=== PATIENT | male | born 1960 | race Caucasian/White ===

== ENCOUNTER 2019-05-26 07:14 | Emergency (ER) | payer BC ==
[~2019-05-26] VITALS: Ht 162.6 cm; Wt 99.8 kg
[~2019-05-26 07:14] MED LIST: BACTRIM DS TAB1 EACH PO; FLOMAX0.4 MG PO; HYDROCHLOROTHIA25 MG PO; METOPROLOL SUCC50 MG PO; NORCO 5-325 TA1 EACH PO; VENTOLIN HFA18 GM INH; ZOFRAN ODT4 MG SL
== END 2019-05-26 07:31 | disposition home or self-care (01) ==
LOC: ED 07:14
DX: R05 Cough (principal); R52 Pain, unspecified

== ENCOUNTER 2019-08-08 18:14 | Emergency (ER) | payer BC ==
[~2019-08-08] VITALS: Ht 162.6 cm; Wt 108.9 kg
== END 2019-08-08 19:21 | disposition home or self-care (01) ==
LOC: ED 18:14
DX: T63.441A Toxic effect of venom of bees, accidental (unintentional), initial encounter (principal); M79.89 Other specified soft tissue disorders; I10 Essential (primary) hypertension; Z88.7 Allergy status to serum and vaccine; Z79.899 Other long term (current) drug therapy
CPT/HCPCS: 99282

== ENCOUNTER 2020-12-16 16:48 | Emergency (ER) | payer BC ==
[~2020-12-16] VITALS: Ht 162.6 cm; Wt 110.0 kg
[2020-12-16] MEDS ORDERED: NITROGLYCERIN0.4 MG SL (18:53)
[2020-12-16] MEDS ORDERED: ASPIRIN EC325 MG PO (18:53)
--- NOTE | 2020-12-16 18:53 | EKG ---
[facility] [address] [facility] [place] [address] Signed Normal sinus rhythm Septal infarct , age undetermined Abnormal ECG Confirmed by ULICES GARCIA DO ([id number]) on 12/16/2020 6:53:08 PM Electronically Signed By: ULICES GARCIA DO 12/16/201852 PATIENT NAME: SHERMAN SERNA Electrocardiogram DATE OF : 62 PHYSICIAN: ULICES GARCIA DO REPORT #: [id number] REPORT IS CONFIDENTIAL AND NOT TO BE RELEASED WITHOUT AUTHORIZATION
== END 2020-12-16 21:04 | disposition home or self-care (01) ==
LOC: ED 16:48
DX: I20.9 Angina pectoris, unspecified (principal); R07.2 Precordial pain; E87.6 Hypokalemia; Z88.7 Allergy status to serum and vaccine; Z79.899 Other long term (current) drug therapy
CPT/HCPCS: 71045; 80053; 83735; 84484; 85025; 93005; 93010; 96365; 99285-25; J3480